=== PATIENT | female | born 1985 | race Caucasian/White ===

== ENCOUNTER 2020-04-28 14:13 | Emergency (ER) | payer OTHER, SELFPAY ==
[2020-04-28 14:24] VITALS: BP 116/73; PULSE 107; RESP 16; TEMP 37.1; O2SAT 100
--- NOTE | 2020-04-28 15:13 | ED.DENTAL ---
HPI - Dental/Oral General Chief complaint: Dental/Oral Stated complaint: tooth ache Time Seen by Provider: 04/28/20 15:13 Source: patient and RN notes reviewed Mode of arrival: ambulatory Limitations: no limitations History of Present Illness HPI Narrative: 34 year old female who presents to [facility] care with complaints of pain and swelling to her right lower molar for the past 3 days which has increased in the past 24 hours. She states that she has been taking Tylenol and Ibuprofen for her discomfort with mild decrease in pain. Patient states that she broke that tooth off in October and since April 23 she has had redness and swelling to gum around #31 molar with some swelling noted to the right side of her face. Patient states that she has Dental appointment on May 25. Patient denies any shortness of breath or any difficulty with swallowing, No Niko angina noted. MD Complaint: tooth pain Location: Tooth # (31) Onset (ago): day(s) (April 23) Duration: worsening Severity: moderate Severity scale (1-10): 7 Relieving factors: NSAIDs Exacerbating factors: chewing and cold Context: history of dental caries Associated symptoms: gum swelling and other (facial swelling) Treatment prior to arrival: oral analgesic Related Data Allergies Allergy/AdvReac Type Severity Reaction Status Date / Time No Known Allergies Allergy Verified 04/28/20 14:33 Review of Systems Review of Systems: Narrative: CONSTITUTIONAL: Denies fever, chills, or sweats. EYES: Denies visual changes, redness, or discharge. ENT: Denies rhinorrhea, congestion, sore throat, or otalgia. positive for right lower molar pain and swelling of gum, positive for swelling to her right face. CARDIOVASCULAR: Denies chest pain, palpitations, or edema. RESPIRATORY: Denies cough or dyspnea. GASTROINTESTINAL: Denies abdominal pain, nausea, vomiting, or diarrhea. GENITOURINARY: Denies dysuria or hematuria. SKIN: Denies rash or itching. MUSCULOSKELETAL: Denies back pain, joint pain, or myalgia. NEUROLOGIC: Denies headache, numbness, or weakness. PSYCHIATRIC: Denies anxiety or depression. All systems reviewed & are unremarkable except as noted in HPI and below PMFSH Past Medical History Medical History (Updated 05/02/20 @ 09:39 by Renetta Queen NP) Dental caries DVT (deep venous thrombosis) Surgical History Surgical History (Updated 05/02/20 @ 09:33 by Renetta Queen NP) History of tonsillectomy and adenoidectomy History of tubal ligation Social History Social History (Updated 05/02/20 @ 09:39 by Renetta Queen NP) Smoking status: Never smoker Living arrangements: with family Gender identity (if verbalized by the patient): Female Comments At time of signature, agree with nursing past medical, surgical, social history. There is no relevant family history pertinent to the presenting complaint Exam Narrative: Exam Narrative: GENERAL: Well-appearing, well-nourished, and in no acute distress. HEAD: Normocephalic, atraumatic. EYES: PERRLA and EOMI. ENT: Nares clear, no rhinorrhea or epistaxis. Mucous membranes moist.TM's normal with good light reflex, throat pink with no swelling. #31 tooth is broken off with noted swelling and rednes of gum and pain, facial swelling to right cheek mild. NECK: Supple.no lymphadenopathy CHEST: Clear to auscultation. No respiratory distress.SAO2 100% on room air. HEART: Regular rate and rhythm. No murmur heard. Normal peripheral pulses. ABDOMEN: Soft, nontender, nondistended, normal active bowel sounds. EXTREMITIES: Normal range of motion. No edema. SKIN: Warm, dry, no rash. NEURO: No focal deficits. Alert and oriented x3. Course Vital Signs Vital signs: Vital Signs Temperature 37.1 C 04/28/20 14:24 Pulse Rate 107 H 04/28/20 14:24 Respiratory Rate 16 04/28/20 14:24 Blood Pressure 116/73 04/28/20 14:24 Pulse Oximetry 100 04/28/20 14:24 Temperature 37.1 C 04/28/20 14:24 Pulse Rate 107 H
== END 2020-04-28 15:43 | disposition home or self-care (01) ==
PROVIDERS: Emergency Provider Registered Nurse
DX: K08.89 Other specified disorders of teeth and supporting structures (principal); K04.7 Periapical abscess without sinus
CPT/HCPCS: 99213; G0463

== ENCOUNTER 2023-09-23 15:48 | Emergency (ER) | payer OTHER, SELFPAY ==
--- NOTE | ~2023-09-23 | XR_ITS ---
EXAMINATION: XR lumbar spine 2-3V DATE: 09/23/2023 16:42 INDICATION: Bilateral low back pain post lifting injury TECHNIQUE: Anteroposterior and lateral views of the lumbar spine, and cone-down lateral view of the l umbosacral junction were obtained. COMPARISON: None. FINDINGS: 6 degrees lumbar dextrocurvature. 5 mm retrolisthesis L5 on S1. Vertebral body heights are normal. Mi ld to moderate disc height loss at L5-S1. Remaining disc heights are normal. Sacral arches are intact . No evident fractures. 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 IMPRESSION: 1. 5 mm retrolisthesis L5 on S1 with mild to moderate associated disc height loss at this level. 2. Mild lumbar dextrocurvature. Reviewed, dictated and finalized at location A. R IMPRESSION: 1. 5 mm retrolisthesis L5 on S1 with mild to moderate associated disc height lo ss at this level. 2. Mild lumbar dextrocurvature.
[2023-09-23 15:55] VITALS: BP 144/85; PULSE 121; RESP 18; TEMP 36.6; O2SAT 100
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
== END 2023-09-23 17:00 | disposition home or self-care (01) ==
PROVIDERS: Emergency Provider Nurse Practitioner Family
DX: S39.012A Strain of muscle, fascia and tendon of lower back, initial encounter (principal); X58.XXXA Exposure to other specified factors, initial encounter
CPT/HCPCS: 72100; 99213; G0463

== ENCOUNTER 2024-01-06 19:39 | Emergency (ER) | payer OTHER, SELFPAY ==
[2024-01-06 20:11] VITALS: BP 123/74; PULSE 115; PULSE 88; RESP 19; TEMP 36.9; O2SAT 100
--- NOTE | 2024-01-06 20:15 | ECG_ITS ---
SEE SCANNED COPY FOR CONFIRMED REPORT MTDD
--- NOTE | 2024-01-06 20:16 | ED.DIZZY ---
HPI - Dizziness General Chief Complaint: Dizziness Stated Complaint: dizzy Time Seen by Provider: 01/06/24 20:03 History of Present Illness HPI Narrative: 38-year-old female presents to the emergency department for evaluation of both lightheaded and dizziness. Patient reports approximately 3 days ago she had onset of lightheaded dizziness. 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 Patient denies any recent cough cold fevers, patient denies any chest pain or shortness of breath. Patient denies any current lightheadedness or dizziness. Patient does have a prior history of clots during her with her most recent being approximately 5 years ago. Related Data Allergies Allergy/AdvReac Type Severity Reaction Status Date / Time No Known Allergies Allergy Verified 09/23/23 16:01 Review of Systems Review of Systems: All systems reviewed & are unremarkable except as noted in HPI and below PMFSH Past Medical History Medical History (Updated 01/07/24 @ 00:00 by Gilberto Harris) Dental caries DVT (deep venous thrombosis) Surgical History Surgical History (Updated 05/02/20 @ 09:33 by Renetta Queen NP) History of tonsillectomy and adenoidectomy History of tubal ligation Social History Social History (Updated 05/02/20 @ 09:39 by Renetta Queen NP) Smoking status: Never smoker Living arrangements: with family Gender identity (if verbalized by the patient): Female Exam Narrative: APPEARANCE: Well appearing, no pain, no distress, well-nourished. HEAD: normocephalic, atraumatic. EYES: PERRLA/EOMI, conjunctivae clear. NOSE: Normal no drainage EARS:TMS clear with good light reflex. THROAT: Pharynx clear, no exudate. NECK: Supple. No adenopathy, no masses. RESPIRATORY: Airway patent, respirations nonlabored. Clear to auscultation bilaterally, no rales, rhonchi, wheezing. CARDIOVASCULAR: Regular rate and rhythm without murmurs rubs or gallops. ABDOMINAL: Soft, nontender, nondistended, normal bowel sounds MUSCULOSKELETAL: Moves all extremities. Strength/ROM intact, No edema, No calf tenderness. NEURO: Alert. Cranial nerves II through XII intact. Grossly intact SKIN: Warm, dry. Normal Color Course Vital Signs Vital signs: Vital Signs Temperature 98.5 F 01/06/24 20:11 Pulse Rate 115 H 01/06/24 20:11 Respiratory Rate 19 01/06/24 20:11 Blood Pressure 123/74 01/06/24 20:11 Pulse Oximetry 100 01/06/24 20:11 Oxygen Delivery Room Air 01/06/24 20:11 Temperature 98.5 F 01/06/24 20:11 Pulse Rate 71 01/06/24 21:01 Respiratory Rate 14 01/06/24 21:01 Blood Pressure 117/70 01/06/24 21:01 Pulse Oximetry 100 01/06/24 21:01 Oxygen Delivery Room Air 01/06/24 20:11 MDM - Dizziness MDM Narrative Medical decision making narrative: 38-year-old female presented to the emergency department for evaluation of complaint of both lightheadedness and dizziness. Patient was treated with IV fluids and meclizine. Patient does feel improved with treatment. Patient is afebrile with no leukocytosis and a stable hemoglobin. Normal INR. Patient has no acute abnormalities on her CMP, UA is concerning for urinary tract infection. Patient was started on Rocephin the emergency department. Patient will be continued on Keflex for home. Patient was encouraged to have close follow-up with her primary care physician. All questions concerns were addressed. Differential Diagnosis Differential diagnosis: Likely orthostatic hypotension and other (Viral infection, urinary tract infection, dehydration, vertigo) Lab Data Attestation: I reviewed the patient's lab results. 01/06/24 20:41 01/06/24 20:41 Labs: Lab Results 01/06/24 01/06/24 Range/Units 20:41 20:43 WBC 7.0 (4.5-10.0) K/mm3 RBC 4.46 (4.2-5.4) M/mm3 Hgb 13.2 (12.0-15.0) g/dL Hct 38.7 (3
[2024-01-06 20:31] VITALS: BP 116/76; PULSE 82; RESP 19; O2SAT 100
[2024-01-06] MEDS: SODIUM CHLORIDE 0.9% IV 1,000 ML 999 ML IV CONT (20:49)
[2024-01-06] MEDS: MECLIZINE HCL 25 MG TABLET PO (20:49)
[2024-01-06 20:50] LABS: Basophils Percent Auto 0.3 % (0.2-1.2); Eosinophils Absolute Auto 0.1 K/mm3 (0-0.3); Eosinophils Percent Auto 1.3 % (0-4.4); Hematocrit 38.7 % (37.0-47.0); Hemoglobin 13.2 g/dL (12.0-15.0); Immature Granulocyte Absolute 0.01 K/mm3 (0.00-0.031); Immature Granulocyte Percent A 0.1 % (0-0.5); Lymphocytes Absolute Auto 2.93 K/mm3 (0.9-3.2); Lymphocytes Percent Auto 42.1 % (18.3-44.2); Mean Corpuscular HGB Conc 34.1 g/dl (32-36); Mean Corpuscular Hemoglobin 29.6 pg (26-34); Mean Corpuscular Volume 86.8 fl (80-100); Mean Platelet Volume 9.7 fl (7.4-10.4); Monocytes Absolute Auto 0.6 K/mm3 (0.1-0.6); Neutrophils Absolute Auto 3.4 K/mm3 (1.3-6.7); Neutrophils Percent Auto 48.2 % (45.5-73.1); Platelet Count Result 197 k/mm3 (150-375); Red Blood Count 4.46 M/mm3 (4.2-5.4); Red Cell Distribution Width 12.2 % (11.5-14.5)
[2024-01-06 21:00] LABS: Alanine Aminotransferase 13 U/L (6-35); Albumin Level 4.2 g/dL (3.5-5.1); Alkaline Phosphatase 58 U/L (38-126); Anion Gap 4 mmol/L (4-12); Aspartate Amino Transferase 16 U/L (14-36); Bilirubin,Total 0.4 mg/dL (0.2-1.3); Blood Urea Nitrogen 12 mg/dL (7-17); Calcium 9.2 mg/dL (8.4-10.2); Carbon Dioxide 25 mmol/L (22-30); Chloride 107 mmol/L (98-107); Estimated CRCL calculation 59 ml/min; Estimated Glomerular Filt Rate > 60; Glucose 85 mg/dL (65-110); INR 0.9; Potassium 3.9 mmol/L (3.4-5.0); Prothrombin Time 12.8 Seconds (11.1-14.7); Sodium 136 mmol/L (137-145)
[2024-01-06 21:01] VITALS: BP 117/70; PULSE 71; RESP 14; O2SAT 100
[2024-01-06 21:01] LABS: Partial Thromboplastin Time 30.7 Seconds (22.3-36.8)
[2024-01-06 21:01] LABS: Appearance Urine Turbid (Clear); Bacteria Urine 4+ /hpf; Bilirubin Urine Negative (Negative); Blood Urine Negative (Negative); Color Urine Yellow (Yellow); Glucose Urine UA Negative (Negative); Ketones Urine Negative (Negative); Leukocyte Esterase Ur 3+ LEU/UL (Negative); Need Manual Microscopic Reviewed; Nitrate Urine Negative (Negative); Protein Urine Trace mg/dL (Negative); Specific Grav Ur 1.019 (1.001-1.035); Squamous Epithelial Cell Urine Many /hpf (Few); WBC Urine >100 /hpf (0-3); pH Urine 6.5 (5.0-9.0)
[2024-01-06 21:02] LABS: Add Urine Microscopic? YES
== END 2024-01-06 21:44 | disposition home or self-care (01) ==
PROVIDERS: Emergency Provider Emergency Medicine
DX: N39.0 Urinary tract infection, site not specified (principal); R42 Dizziness and giddiness; R52 Pain, unspecified; Z86.718 Personal history of other venous thrombosis and embolism
CPT/HCPCS: 36415; 80053; 81001; 85025; 85610; 85730; 87086; 87088; 93005; 96361; 96365; 99284; A9270; J0696; J7030